=== PATIENT | female | born 1950 ===

== ENCOUNTER 2023-12-03 10:47 | Outpatient (CLI) | payer OTHER ==
[~2023-12-03 10:47] MED LIST: CYMBALTA30 MG PO; MEDROLPACK PO
[2023-12-03 12:00] LABS: ALBUMIN 3.9 gm/dL (3.4-5.0); BILIRUBIN TOTAL 0.74 mg/dL (0.3-1.2); CREATININE SERUM 0.84 mg/dL (0.55-1.02); GFR 66.46; GLOBULINA 3.1 G/DL (2.4-3.5); POTASSIUM 4.04 mEq/L (3.5-5.1)
[2023-12-04 13:06] LABS: hav igm Negative (Negative); hcv Non Reactive (Non Reactive); hep b c Negative (Negative)
== END 2023-12-03 11:57 | disposition home or self-care (01) ==
LOC: LAB 10:47
PROVIDERS: ATTEND Physical Medicine & Rehabilitation
DX: G62.9 Polyneuropathy, unspecified (principal)